=== PATIENT | female | born 1965 | race Two or more races ===

== ENCOUNTER 2018-08-16 16:48 | Inpatient (IN) | payer BC ==
[~2018-08-16] VITALS: Ht 152.4 cm; Wt 53.5 kg
[2018-08-16] MEDS ORDERED: IPRATROPIUM BROM 0.5 MG/2.5ML INH SOL NEB ONE ×2 (17:00→21:00)
[2018-08-16] MEDS ORDERED: ALBUTEROL SULF 2.5 MG/0.5ML(0.5%) NEB SOLN NEB ONE ×2 (17:00→21:00)
[2018-08-16] MEDS ORDERED: methylPREDNISolone SOD SUCC 125 MG/2 ML VL IV ONE ×2 (17:15→21:15)
[2018-08-16] MEDS ORDERED: AZITHROMYCIN 500MG/ 250ML 250 ML IV ONE (17:15)
[2018-08-16 17:21] LABS: Basophils # (auto) 0.1 uL; Basophils % (auto) 0.4 % (0.0-2.0); Eosinophils # (auto) 0 uL; Eosinophils % (auto) 0.2 % (0.0-7.0); Hematocrit 41.3 % (36.0-46.0); Hemoglobin 13.8 g/dL (12.2-16.2); Lymphocytes # (auto) 3.9 uL; Mean Corpuscular Hgb Conc. 33.5 g/dL (32.0-36.0); Mean Corpuscular Volume 89.5 fL (80.0-100.0); Monocytes % (auto) 6.8 % (0.0-12.0); Neutrophils % (auto) 66.6 % (37.0-80.0); Platelet Count (auto) 320 10^3/uL (140-450); Red Blood Cells 4.61 10^6/uL (4.0-5.20); Red Cell Distribution Width 13.4 % (11.8-14.3); White Blood Cell 15.1 10^3/uL (4.4-10.8)
[2018-08-16 17:37] LABS: Alanine Aminotransferase 55 U/L (13-56); Albumin 3.4 g/dL (3.4-5.0); Anion Gap 10 (5-15); Aspartate Aminotransferase 19 U/L (15-37); BUN/Creatinine Ratio 30.1; Blood Urea Nitrogen 22 mg/dL (7-18); Calcium 8.9 mg/dL (8.5-10.1); Carbon Dioxide 29 mmol/L (21-32); Chloride 103 mmol/L (98-107); GFR African American 107 mL/min; GFR Non-African American 89 mL/min; Glucose 119 mg/dL (74-106); Magnesium 2.5 mg/dL (1.6-2.6); Potassium 3.9 mmol/L (3.5-5.1); Sodium 142 mmol/L (136-145)
[2018-08-16 17:42] LABS: Alkaline Phosphatase 273 U/L (45-117); Bilirubin, Total 0.2 mg/dL (0.2-1.0); Total Protein 8.1 g/dL (6.4-8.2)
[2018-08-16] MEDS ORDERED: cefTRIAXone 1GM/50ML D5W 50 ML IV ONE (18:15)
[2018-08-16] MEDS ORDERED: ALBUTEROL SULF 2.5 MG/0.5ML(0.5%) NEB SOLN HHN ONE (21:00)
[2018-08-16 21:14] VITALS: BP 161/92
[2018-08-16] MEDS ORDERED: ONDANSETRON HCL 4 MG/2 ML VIAL IV PRN (21:15)
[2018-08-16] MEDS ORDERED: ACETAMINOPHEN 325 MG TAB PO PRN (21:15)
[2018-08-16] MEDS ORDERED: NITROGLYCERIN 0.4 MG SL TAB SL PRN (21:15)
[2018-08-16] MEDS ORDERED: IPRATROPIUM BROM 0.5 MG/2.5ML INH SOL NEB PRN (21:15)
[2018-08-16] MEDS ORDERED: ALBUTEROL SULF 2.5 MG/0.5ML(0.5%) NEB SOLN NEB PRN (21:15)
[2018-08-16] MEDS ORDERED: MORPHINE SULF INJ 2 MG/ML SYRINGE 1ML IV PRN (21:15)
[2018-08-16] MEDS ORDERED: HYDROcodone-ACET 5/325MG TAB PO PRN (21:15)
[2018-08-16] MEDS: FAMOTIDINE 20 MG TAB PO SCH (21:42)
[2018-08-16] MEDS: guaiFENesin-DM 100/10mg/5ml SYR PO PRN (21:47)
[2018-08-16 22:07] VITALS: BP 141/76
[2018-08-16 22:30] VITALS: BP 125/68
--- NOTE | 2018-08-16 22:30 | NUR ---
Telemetry admit from ER MARINA VEGA admitted to Telemetry unit after SBAR received. Patient oriented to ANGELA MARSHALL OCA, primary RN, unit, room, bed, and unit policies regarding patient care and visiting hours. Patient now on continuous telemetry monitoring, tele box #41 and telemetry reading on arrival to unit is sinus tach 101. Patient placed Bipap by RT, weighed by bedscale and encouraged to call if they need something. All questions and concerns addressed, patient verbalized understanding. Family currently at bedside. Bed in lowest locked position, call light within reach, side rails up x2, fall precautions in place. Will continue to monitor Q1hr and PRN.
[2018-08-16] MEDS: TEMAZEPAM 15 MG CAP PO PRN (23:52)
[2018-08-17] VITALS (7 sets, daily range): BP systolic 125–143; BP diastolic 68–86
[2018-08-17] MEDS: guaiFENesin-DM 100/10mg/5ml SYR PO PRN ×3 (05:25→20:12)
--- NOTE | 2018-08-17 05:32 | NUR ---
Rapid influenza sent to lab.
--- NOTE | 2018-08-17 06:01 | NUR ---
Respiratory note: RECEIVED PT ON RESPIRONICS V60 BIPAP ([id number]), BIPAP CONNECTED TO RED OUTLET AND O2 SOURCE. ALARMS ARE SET AND AUDIBLE. AMBU BAG AND MASK AT BEDSIDE. BS ARE FINE COURSE T/O. PT ON A SIZE (M) MASK. NO BREAKDOWN NOTED. ADJUSTED MASK TO ACHIEVE ACCEPTABLE LEAK LIQUICELL IN PLACE ON BRIDGE OF NOSE. FIO2 INCREASED TO 40% DUE TO DESATURATION, RN ANGELA AT BEDSIDE AND AWARE OF CHANGE. RT NAME AND PAGER ASSIGNMENT WRITTEN ON PTS ROOM BOARD.
[2018-08-17 06:21] LABS: Basophils # (auto) 0 uL; Basophils % (auto) 0.1 % (0.0-2.0); Eosinophils # (auto) 0 uL; Hematocrit 41.3 % (36.0-46.0); Hemoglobin 13.9 g/dL (12.2-16.2); Lymphocytes # (auto) 0.8 uL; Lymphocytes % (auto) 8.1 % (10.0-50.0); Mean Corpuscular Hemoglobin 30.3 pg (28.0-32.0); Mean Corpuscular Hgb Conc. 33.6 g/dL (32.0-36.0); Mean Corpuscular Volume 90.1 fL (80.0-100.0); Monocytes # (auto) 0.1 uL; Monocytes % (auto) 1.5 % (0.0-12.0); Neutrophils # (auto) 8.6 uL; Neutrophils % (auto) 90.3 % (37.0-80.0); Nucleated Red Blood Cells % 0.1 %; Platelet Count (auto) 308 10^3/uL (140-450); Red Blood Cells 4.58 10^6/uL (4.0-5.20); Red Cell Distribution Width 13.5 % (11.8-14.3); White Blood Cell 9.5 10^3/uL (4.4-10.8)
[2018-08-17 06:34] LABS: Potassium 3.9 mmol/L (3.5-5.1)
[2018-08-17 06:44] LABS: Albumin 3.2 g/dL (3.4-5.0); BUN/Creatinine Ratio 28.3; Bilirubin, Total 0.3 mg/dL (0.2-1.0); Calcium 8.9 mg/dL (8.5-10.1); Total Protein 7.9 g/dL (6.4-8.2)
--- NOTE | 2018-08-17 08:00 | NUR ---
Respiratory note: PT OFF BIPAP TO GO TO RESTROOM. PLACED PT ON 12LPM OXYMIZER. POX 99-100% WILL TITRATE TOLERATED RN DONNA AT BEDSIDE, AWARE AND ASSISTING PT TO COMMODE. WILL CONTINUE TO MONITOR.
[2018-08-17] MEDS: cefTRIAXone 1GM/50ML D5W 50 ML IV SCH (09:32)
[2018-08-17] MEDS ORDERED: BUDESONIDE (INHALATION) 0.5 MG/2 ML NEB NEB ONE (09:45)
--- NOTE | 2018-08-17 09:55 | NUR ---
Respiratory note: FIO2 TITRATED TO 10LPM VIA OXYMIZER. RN DONNA AWARE OF CHANGE.
[2018-08-17] MEDS: methylPREDNISolone SOD SUCC 125 MG/2 ML VL IV SCH ×2 (10:45→22:42)
[2018-08-17] MEDS: AZITHROMYCIN 500MG/ 250ML 250 ML IV SCH (10:45)
[2018-08-17] MEDS: FAMOTIDINE 20 MG TAB PO SCH ×2 (10:46→22:42)
--- NOTE | 2018-08-17 12:36 | NUR ---
SHORTNESS OF BREATH PAGED RT FOR BREATHING TREATMENT, PT IS COMPLAINING SHE IS HAVING SHORTNESS OF BREATH.
[2018-08-17] MEDS: ALBUTEROL SULF 2.5 MG/0.5ML(0.5%) NEB SOLN NEB SCH ×3 (12:58→18:27)
[2018-08-17] MEDS: IPRATROPIUM BROM 0.5 MG/2.5ML INH SOL NEB SCH ×3 (12:58→18:27)
[2018-08-17] MEDS: BUDESONIDE (INHALATION) 0.5 MG/2 ML NEB NEB SCH ×2 (13:00→18:27)
[2018-08-17 15:05] LABS: Urine Amorphous Crystal FEW /hpf (None Seen); Urine Bacteria NONE SEEN /hpf (None Seen); Urine Blood Negative /uL (Negative); Urine Specific Gravity 1.014 (1.001-1.035); Urine WBC 4 /hpf (0 - 5)
--- NOTE | 2018-08-17 15:52 | NUR ---
PT IS COMPLAINING OF DIFFICULTY BREATHING, PAGED RT FOR BREATHING TREATMENT.
--- NOTE | 2018-08-17 18:14 | NUR ---
paged RT, pt complaining of difficulty breathing and requesting breathing treatment before eating her dinner. O2 sat is 96%, will continue to monitor.
--- NOTE | 2018-08-17 20:17 | NUR ---
Paging hospitalist because patient is having SOB with increased HR. Patient reports SOB on 10l/min Oxymizer. RR: 32, O2 sat: 98% on 10 l/min, HR: 135. Wheezing auscultated in bilateral lungs, worse in upper lobes. RT paged and assessed. RT placed patient on BiPAP. Patient is very anxious and does not like the claustrophobic feeling of the BiPAP. Pt states she takes Xopenex at home and it helps her. Albuterol and Atrovent potentially harmful with high HR. RT recommends Xopenex 0.63 mg NEB q 4 hrs scheduled, DC Atrovent and Ventolin scheduled order, and change Atrovent/Ventolin PRN orders to q 2 hrs instead of 4 hrs PRN. I would also like to recommend Ativan PO for anxiety. Addendum: 08/17/18 at 2159 by YANETH CH RN Patient is currently receiving Solumedrol 80 mg IV BID as well.
--- NOTE | 2018-08-17 21:58 | NUR ---
Paging hospitalist again.
[2018-08-17] MEDS ORDERED: LORazepam 2MG/ML-1ML VIAL IV PRN (22:15)
[2018-08-17] MEDS ORDERED: ALBUTEROL SULF 2.5 MG/0.5ML(0.5%) NEB SOLN NEB PRN (22:15)
--- NOTE | 2018-08-17 22:18 | NUR ---
Spoke to PABLO Ochoa and notified her of the patient's condition. PABLO Ochoa ordered the followin) Ativan 1 mg IV q 6 hrs PRN anxiety, 2) Levalbuterol 0.63 mg NEB q 6 hrs scheduled, 3) DC scheduled Atrovent and Albuterol, 4) change PRN Albuterol and Ventolin from q 4 hrs PRN to q 2 hrs PRN. PABLO Ochoa requested Solumedrol order to remain unchanged. Orders repeated, verified, and placed.
[2018-08-17] MEDS ORDERED: LEVALBUTEROL HCL 1.25 MG/3 ML NEB ONE (22:28)
[2018-08-17] MEDS ORDERED: LORazepam 2MG/ML-1ML VIAL ONE (22:37)
[2018-08-18] MEDS ORDERED: LEVA1NEB5 NEB (03:52)
[2018-08-18 05:00] VITALS: BP 139/89
[2018-08-18] MEDS: guaiFENesin-DM 100/10mg/5ml SYR PO PRN ×2 (05:03→19:17)
[2018-08-18] MEDS ORDERED: LEVALBUTEROL HCL 1.25 MG/3 ML NEB ONE ×4 (05:47→23:38)
[2018-08-18] MEDS ORDERED: LEVALBUTEROL HYDROCHLORIDE 0.63 MG/3 ML NEB SOLN NEB SCH (06:00)
[2018-08-18] MEDS: BUDESONIDE (INHALATION) 0.5 MG/2 ML NEB NEB SCH ×2 (06:02→19:17)
[2018-08-18 06:04] LABS: Basophils # (auto) 0 uL; Basophils % (auto) 0.1 % (0.0-2.0); Eosinophils # (auto) 0 uL; Hematocrit 43.1 % (36.0-46.0); Hemoglobin 14.1 g/dL (12.2-16.2); Lymphocytes # (auto) 0.7 uL; Lymphocytes % (auto) 4.3 % (10.0-50.0); Mean Corpuscular Hemoglobin 29.5 pg (28.0-32.0); Mean Corpuscular Hgb Conc. 32.8 g/dL (32.0-36.0); Monocytes # (auto) 0.5 uL; Monocytes % (auto) 2.9 % (0.0-12.0); Neutrophils # (auto) 16.1 uL; Neutrophils % (auto) 92.7 % (37.0-80.0); Platelet Count (auto) 383 10^3/uL (140-450); Red Blood Cells 4.79 10^6/uL (4.0-5.20); Red Cell Distribution Width 13.8 % (11.8-14.3); White Blood Cell 17.4 10^3/uL (4.4-10.8)
[2018-08-18 06:39] LABS: Potassium 4.2 mmol/L (3.5-5.1)
[2018-08-18 06:47] LABS: BUN/Creatinine Ratio 35.1; Calcium 9.3 mg/dL (8.5-10.1); Magnesium 2.8 mg/dL (1.6-2.6)
[2018-08-18] MEDS ORDERED: ASCO500T11 PO (07:14)
[2018-08-18] MEDS ORDERED: OMEG100062 PO (07:14)
[2018-08-18] MEDS ORDERED: CETI1TAB36 PO (07:14)
[2018-08-18] MEDS ORDERED: FLUT0.05 NAS (07:14)
[2018-08-18] MEDS: cefTRIAXone 1GM/50ML D5W 50 ML IV SCH (08:27)
[2018-08-18 08:41] VITALS: BP 127/73
[2018-08-18] MEDS: IPRATROPIUM BROM 0.5 MG/2.5ML INH SOL NEB PRN ×2 (08:59→16:35)
--- NOTE | 2018-08-18 09:00 | NUR ---
RT NOTE: PAGED TO BEDSIDE DUE TO PT DESATURATION. UPON ENTERING RN BEDSIDE WITH . PT ON 15L NON-REBREATHER WITH SPO2 94. RN STATED THAT ON 12L OXYMIZER SPO2 WAS ONLY ABOUT 86. PT GIVEN PRN ATROVENT ONLY DUE TO HR BEING ABOVE 120. LUNG SOUNDS PRIOR WERE VERY DIMINISHED, MORE SO ON THE LEFT THAN THE RIGHT. POST TX, RIGHT LUNG SOUNDS WERE CLEAR BUT LEFT LUNG SOUNDS STILL VERY DIMINISHED. SPOKE WITH RN ABOUT TRYING TO HAVE SOLUMEDROL INCREASED TO ASSIST WITH OPENING UP HER AIRWAYS. WILL CONTINUE TO MONITOR.
[2018-08-18] MEDS ORDERED: POTASSIUM CHL 20 Meq TABLET PO ONE (09:30)
[2018-08-18] MEDS ORDERED: FUROSEMIDE 20 MG/2 ML VIAL IV ONE (09:30)
[2018-08-18] MEDS: FAMOTIDINE 20 MG TAB PO SCH ×2 (09:32→21:20)
[2018-08-18] MEDS: methylPREDNISolone SOD SUCC 125 MG/2 ML VL IV SCH ×3 (09:32→21:20)
[2018-08-18] MEDS: AZITHROMYCIN 500MG/ 250ML 250 ML IV SCH (09:33)
--- NOTE | 2018-08-18 10:40 | NUR ---
Brice catheter insertion Patient assessed and determined to be in need of brice catheter. Order obtained from MD. Patient educated on catheter and reason for insertion. All questions answered. Brice catheter guage Turkmen inserted with clean sterile technique. Patient tolerated well.
--- NOTE | 2018-08-18 11:05 | NUR ---
Pulmonary consult Pt seen by DR. Mims, he ordered BNP.
[2018-08-18] MEDS: ACETYLCYSTEINE 10 %(100MG/ML) SOL 4ML NEB SCH ×2 (11:46→19:15)
[2018-08-18] MEDS: LEVALBUTEROL HYDROCHLORIDE 0.63 MG/3 ML NEB SOLN NEB SCH ×2 (11:46→19:15)
[2018-08-18 12:13] VITALS: BP 124/77
--- NOTE | 2018-08-18 14:00 | NUR ---
care endorsed to DI Duran
--- NOTE | 2018-08-18 15:30 | NUR ---
Opening Shift Note: A&Ox4, resting in bed. Primary language is syrian but speaks chinese. Currently on 7LO2 via oxymizer; does not wear O2 at home; pain level 0/10; and at baseline, ambulates independently without assistive devices; currently bedrest per physician order. IV 20 g in left AC IID inserted on 08/16/18. Skin intact. [place] inserted on 08/18/18 for prolonged immobilization. POC discussed and questions answered. Will continue to round prn.
[2018-08-18 16:57] VITALS: BP 115/72
--- NOTE | 2018-08-18 18:16 | NUR ---
Respiratory note: AT BEDSIDE FOR MED NEB TX. PT EATING AT THIS TIME. PTS FAMILY AT BEDSIDE. WILL RETURN TO ADMINISTER TX WHEN PT IS DONE EATING.
--- NOTE | 2018-08-18 19:05 | NUR ---
RT paged for breathing treatment.
--- NOTE | 2018-08-18 19:15 | NUR ---
Respiratory note: AT BEDSIDE FOR MED NEB TX. PT TOLERATING TX WELL VIA MASK. RT NAME AND PAGER ASSIGNMENT WRITTEN ON PTS ROOM BOARD. WILL CONTINUE TO MONITOR.
[2018-08-18] MEDS: TEMAZEPAM 15 MG CAP PO PRN (21:20)
[2018-08-18 22:00] VITALS: BP 147/85
--- NOTE | 2018-08-18 22:20 | NUR ---
Brice catheter leaking: Per patient, when she coughs, she is incontinent of urine around the brice catheter. 3 ml of NS added to 10 ml balloon. Will reassess for leaking
[2018-08-19] MEDS: LEVALBUTEROL HYDROCHLORIDE 0.63 MG/3 ML NEB SOLN NEB SCH ×4 (00:03→18:00)
--- NOTE | 2018-08-19 00:03 | NUR ---
Brice catheter still leaking: Brice 14 F removed related to leaking. Attempted 16F but was unsuccessful on insertion. Patient refusing brice catheter at this time and states she will use the bedpan.
--- NOTE | 2018-08-19 00:06 | NUR ---
Respiratory note: AT BEDSIDE FOR MED MARIO TELLEZ.
[2018-08-19] MEDS: ACETYLCYSTEINE 10 %(100MG/ML) SOL 4ML NEB SCH ×4 (00:07→18:22)
--- NOTE | 2018-08-19 00:14 | NUR ---
Respiratory note: FIO2 TITRATED FROM 7 TO 5LPM VIA OXYMIZER. DI López MADE AWARE.
[2018-08-19] MEDS: guaiFENesin-DM 100/10mg/5ml SYR PO PRN ×5 (03:36→21:31)
[2018-08-19 05:00] VITALS: BP 117/72
[2018-08-19 05:03] LABS: Basophils # (auto) 0.2 uL; Eosinophils # (auto) 0 uL; Hematocrit 41.2 % (36.0-46.0); Hemoglobin 13.9 g/dL (12.2-16.2); Lymphocytes # (auto) 0.7 uL; Lymphocytes % (auto) 4.2 % (10.0-50.0); Mean Corpuscular Hemoglobin 30.2 pg (28.0-32.0); Mean Corpuscular Hgb Conc. 33.7 g/dL (32.0-36.0); Mean Corpuscular Volume 89.5 fL (80.0-100.0); Monocytes # (auto) 0.6 uL; Monocytes % (auto) 3.6 % (0.0-12.0); Neutrophils # (auto) 14.9 uL; Neutrophils % (auto) 91.2 % (37.0-80.0); Platelet Count (auto) 386 10^3/uL (140-450); Red Blood Cells 4.61 10^6/uL (4.0-5.20); Red Cell Distribution Width 13.7 % (11.8-14.3); White Blood Cell 16.3 10^3/uL (4.4-10.8)
[2018-08-19 05:08] LABS: BUN/Creatinine Ratio 39.4; Calcium 9.3 mg/dL (8.5-10.1)
[2018-08-19] MEDS: methylPREDNISolone SOD SUCC 125 MG/2 ML VL IV SCH ×3 (06:33→21:31)
[2018-08-19] MEDS ORDERED: LEVALBUTEROL HCL 1.25 MG/3 ML NEB ONE ×4 (06:57→23:45)
[2018-08-19] MEDS: BUDESONIDE (INHALATION) 0.5 MG/2 ML NEB NEB SCH ×2 (07:01→18:21)
[2018-08-19 08:27] VITALS: BP 118/67
[2018-08-19] MEDS: cefTRIAXone 1GM/50ML D5W 50 ML IV SCH (09:51)
[2018-08-19] MEDS: FAMOTIDINE 20 MG TAB PO SCH ×2 (09:51→21:31)
[2018-08-19] MEDS: AZITHROMYCIN 500MG/ 250ML 250 ML IV SCH (10:30)
[2018-08-19 12:46] VITALS: BP 115/68
--- NOTE | 2018-08-19 14:47 | NUR ---
PATIENT GIVEN INCENTIVE SPIROMETER PER ORDERS EDUCATION PROVIDED TO PATIENT AND FAMILY, PATIENT AND FAMILY VERBALIZED UNDERSTANDING. RETURN DEMONSTRATION PROVIDED. ALL QUESTIONS AND CONCERNS ADDRESS. WILL CONTINUE CARE.
[2018-08-19 16:22] VITALS: BP 115/73
--- NOTE | 2018-08-19 19:35 | NUR ---
open note assumed care of pt. upon entering room pt awake and alert. pt has family at bedside. pt on 5L NC with no distress noted or expressed. pt bed locked low and 2x rails up. pt denies any pain. pt updated on plan of care. no questions at this time. call light in reach. will round q1hr and prn.
[2018-08-19 21:30] VITALS: BP 112/65
[2018-08-19] MEDS: TEMAZEPAM 15 MG CAP PO PRN (21:31)
--- NOTE | 2018-08-19 22:00 | NUR ---
pt back to room without incident. no distress noted. call light in reach, will continue to monitor. Addendum: 08/19/18 at 2205 by MARIA ZAVALA RN RN disregard note, wrong patient.
[2018-08-19 22:50] VITALS: BP 115/73
[2018-08-20] MEDS: ACETYLCYSTEINE 10 %(100MG/ML) SOL 4ML NEB SCH ×5 (00:40→23:45)
[2018-08-20 05:00] VITALS: BP 106/56
[2018-08-20 05:42] LABS: Basophils # (auto) 0 uL; Basophils % (auto) 0.1 % (0.0-2.0); Eosinophils # (auto) 0 uL; Hematocrit 41.9 % (36.0-46.0); Hemoglobin 13.9 g/dL (12.2-16.2); Lymphocytes # (auto) 0.9 uL; Lymphocytes % (auto) 5.5 % (10.0-50.0); Mean Corpuscular Hgb Conc. 33.3 g/dL (32.0-36.0); Monocytes # (auto) 0.6 uL; Monocytes % (auto) 3.6 % (0.0-12.0); Neutrophils # (auto) 14.1 uL; Neutrophils % (auto) 90.8 % (37.0-80.0); Nucleated Red Blood Cells % 0.1 %; Platelet Count (auto) 409 10^3/uL (140-450); Red Blood Cells 4.65 10^6/uL (4.0-5.20); Red Cell Distribution Width 13.6 % (11.8-14.3); White Blood Cell 15.5 10^3/uL (4.4-10.8)
[2018-08-20 05:56] LABS: BUN/Creatinine Ratio 53.3; Calcium 8.9 mg/dL (8.5-10.1); Potassium 4.3 mmol/L (3.5-5.1)
[2018-08-20] MEDS: guaiFENesin-DM 100/10mg/5ml SYR PO PRN ×2 (06:34→21:49)
[2018-08-20] MEDS: methylPREDNISolone SOD SUCC 125 MG/2 ML VL IV SCH ×3 (06:34→21:49)
[2018-08-20] MEDS: BUDESONIDE (INHALATION) 0.5 MG/2 ML NEB NEB SCH ×2 (06:39→18:54)
[2018-08-20] MEDS: LEVALBUTEROL HYDROCHLORIDE 0.63 MG/3 ML NEB SOLN NEB SCH ×5 (06:39→23:45)
--- NOTE | 2018-08-20 07:10 | NUR ---
Opening Shift Note RECEIVED REPORT FROM NOC RN. Assumed care of patient, awake and alert. PATIENT ON OXYGEN AT 5 LPM VIA NASAL CANNULA WITH no S/S of distress/SOB or pain. BED IN LOWEST, LOCKED POSITION WITH SIDERAILS UP x2. Instructed on POC and to call for assist PRN, will continue to monitor for changes Q1hr and PRN.
[2018-08-20] MEDS ORDERED: LEVALBUTEROL HCL 1.25 MG/3 ML NEB ONE ×4 (07:44→23:34)
[2018-08-20 08:30] VITALS: BP 123/72
[2018-08-20] MEDS: cefTRIAXone 1GM/50ML D5W 50 ML IV SCH (09:30)
[2018-08-20] MEDS: FAMOTIDINE 20 MG TAB PO SCH ×2 (10:07→21:49)
[2018-08-20] MEDS: AZITHROMYCIN 500MG/ 250ML 250 ML IV SCH (10:07)
[2018-08-20 13:30] VITALS: BP 114/74
--- NOTE | 2018-08-20 15:53 | NUR ---
DR. DIAZ AT BEDSIDE. DR. DIAZ SPEAKING WITH PATIENT. UPDATED PATIENT ON POC. NO NEW ORDERS.
--- NOTE | 2018-08-20 16:50 | NUR ---
DR. MORRISSEY AT BEDSIDE. DR. MORRISSEY SPEAKING WITH PATIENT AND . UPDATED ON POC. NEW ORDERS RECEIVED.
--- NOTE | 2018-08-20 17:15 | NUR ---
PATIENT AMBULATED IN THE HALLWAY FROM CENTRAL UNIT, DOWN TO THE END OF WEST UNIT, AND BACK WITHOUT ANY DYSPNEA OR SHORTNESS OF BREATH.
--- NOTE | 2018-08-20 17:22 | NUR ---
RADIOLOGY AT BEDSIDE. RADIOLOGY TAKING PATIENT FOR CT SCAN.
[2018-08-20 17:30] VITALS: BP 114/71
--- NOTE | 2018-08-20 19:40 | NUR ---
open note assumed care of pt. upon entering room pt awake and alert, accompanied by . bed locked, low and 2x rails up. pt updated on plan of care. pt on 3L NC without any distress noted. no additional questions at this time. call light in reach, will round q1hr and prn.
[2018-08-20 21:30] VITALS: BP 119/73
[2018-08-20] MEDS: TEMAZEPAM 15 MG CAP PO PRN (21:49)
[2018-08-20] MEDS: IPRATROPIUM BROM 0.5 MG/2.5ML INH SOL NEB PRN (23:45)
[2018-08-21 05:00] VITALS: BP 113/68
[2018-08-21] MEDS ORDERED: LEVALBUTEROL HCL 1.25 MG/3 ML NEB ONE ×4 (05:34→23:39)
[2018-08-21] MEDS: LEVALBUTEROL HYDROCHLORIDE 0.63 MG/3 ML NEB SOLN NEB SCH ×4 (05:47→23:58)
[2018-08-21] MEDS: BUDESONIDE (INHALATION) 0.5 MG/2 ML NEB NEB SCH ×2 (05:47→18:05)
[2018-08-21] MEDS: ACETYLCYSTEINE 10 %(100MG/ML) SOL 4ML NEB SCH ×4 (05:47→23:58)
[2018-08-21 06:12] LABS: Basophils # (auto) 0 uL; Basophils % (auto) 0.1 % (0.0-2.0); Eosinophils # (auto) 0 uL; Hemoglobin 13.7 g/dL (12.2-16.2); Lymphocytes # (auto) 0.8 uL; Lymphocytes % (auto) 6.1 % (10.0-50.0); Mean Corpuscular Hemoglobin 30.2 pg (28.0-32.0); Mean Corpuscular Hgb Conc. 33.5 g/dL (32.0-36.0); Mean Corpuscular Volume 90.2 fL (80.0-100.0); Monocytes # (auto) 0.4 uL; Monocytes % (auto) 3.1 % (0.0-12.0); Neutrophils # (auto) 11.7 uL; Neutrophils % (auto) 90.7 % (37.0-80.0); Nucleated Red Blood Cells % 0.1 %; Platelet Count (auto) 396 10^3/uL (140-450); Red Blood Cells 4.54 10^6/uL (4.0-5.20); Red Cell Distribution Width 13.5 % (11.8-14.3); White Blood Cell 12.9 10^3/uL (4.4-10.8)
[2018-08-21] MEDS: methylPREDNISolone SOD SUCC 125 MG/2 ML VL IV SCH (06:30)
[2018-08-21 06:54] LABS: BUN/Creatinine Ratio 37.5; Calcium 8.8 mg/dL (8.5-10.1); Potassium 4.3 mmol/L (3.5-5.1)
--- NOTE | 2018-08-21 07:20 | NUR ---
Morning note patient resting in bed with even and unlabored respirations, no distress noted. Instructed patient on POC, fall precautions and to call for assistance as needed. patient verbalized understanding. Fall precautions in place with call light within reach. Will continue to monitor q1hr & PRN.
[2018-08-21 09:00] VITALS: BP 106/69
[2018-08-21] MEDS: FAMOTIDINE 20 MG TAB PO SCH ×2 (09:50→21:43)
[2018-08-21] MEDS: cefTRIAXone 1GM/50ML D5W 50 ML IV SCH (09:50)
--- NOTE | 2018-08-21 09:55 | NUR ---
was at bedside - Dr. Liv LORA discussed with the patient and patient's spouse at bedside. This RN present.
[2018-08-21] MEDS: AZITHROMYCIN 250 MG TAB PO SCH (10:41)
--- NOTE | 2018-08-21 10:51 | NUR ---
Patient ambulating with steady gait, no distress noted. Patient's spouse is at her side.
--- NOTE | 2018-08-21 11:01 | NUR ---
Pulse ox 87-89% on RA after ambulation HR ST 135 bpm. Patient returned to bed with no complications. Patient placed on supplemental oxygen per MD's order. Notified Dr. Peck. verbalized understanding. Ordered to continue to monitor.
--- NOTE | 2018-08-21 11:50 | NUR ---
Telemonitor removed & returned to telemonitor tech per MD's order
--- NOTE | 2018-08-21 12:19 | NUR ---
Nutrition Assessment Notes please see attached link for complete assessment Est. Needs BW [id number] kcal (25-30 kcal/kgBW), 51-61 gms pro (1.0-1.2 gms/kgBW). Will continue to monitor pertinent labs and reassess nutrient need prn Addendum: 08/21/18 at [address] Amended: Links added.
[2018-08-21 13:00] VITALS: BP 104/66
[2018-08-21] MEDS: methylPREDNISolone SOD SUCC 40 MG/ML VL IV SCH ×2 (14:08→21:43)
--- NOTE | 2018-08-21 14:10 | NUR ---
Patient sitting in chair at bedside respirations even and unlabored, no distress noted. Call light within reach. Patient's spouse is at bedside.
--- NOTE | 2018-08-21 16:50 | NUR ---
Patient ambulating steady gait noted. Respirations even and unlabored, no distress noted. Patient's spouse at patient's side.
[2018-08-21 17:00] VITALS: BP 112/76
--- NOTE | 2018-08-21 18:05 | NUR ---
was at bedside - Dr. Mims Patient clear for discharge per MD.
--- NOTE | 2018-08-21 18:43 | NUR ---
Closing note patient resting in bed with even and unlabored respirations, no distress noted. Fall precautions in place with call light within reach.
--- NOTE | 2018-08-21 19:30 | NUR ---
Care endorsed to DI Mcadams.
--- NOTE | 2018-08-21 19:35 | NUR ---
assumed care, pt. awake, no c/o pain, no sob.
[2018-08-21 22:41] VITALS: BP 98/53
[2018-08-22 05:17] LABS: Basophils # (auto) 0 uL; Basophils % (auto) 0.1 % (0.0-2.0); Eosinophils # (auto) 0 uL; Hemoglobin 13.3 g/dL (12.2-16.2); Lymphocytes # (auto) 0.7 uL; Lymphocytes % (auto) 5.8 % (10.0-50.0); Mean Corpuscular Hemoglobin 29.7 pg (28.0-32.0); Mean Corpuscular Hgb Conc. 33.3 g/dL (32.0-36.0); Mean Corpuscular Volume 89.1 fL (80.0-100.0); Monocytes # (auto) 0.4 uL; Monocytes % (auto) 3.2 % (0.0-12.0); Neutrophils # (auto) 10.9 uL; Neutrophils % (auto) 90.9 % (37.0-80.0); Platelet Count (auto) 375 10^3/uL (140-450); Red Blood Cells 4.49 10^6/uL (4.0-5.20); Red Cell Distribution Width 13.4 % (11.8-14.3)
[2018-08-22 05:25] VITALS: BP 106/65
[2018-08-22] MEDS: methylPREDNISolone SOD SUCC 40 MG/ML VL IV SCH (05:27)
[2018-08-22] MEDS ORDERED: LEVALBUTEROL HCL 1.25 MG/3 ML NEB ONE ×2 (05:35→11:10)
[2018-08-22] MEDS ORDERED: BUDESONIDE (INHALATION) 0.5 MG/2 ML NEB ONE (05:35)
[2018-08-22] MEDS: BUDESONIDE (INHALATION) 0.5 MG/2 ML NEB NEB SCH (05:46)
[2018-08-22] MEDS: ACETYLCYSTEINE 10 %(100MG/ML) SOL 4ML NEB SCH ×2 (05:47→11:52)
[2018-08-22] MEDS: IPRATROPIUM BROM 0.5 MG/2.5ML INH SOL NEB PRN ×2 (05:47→11:53)
[2018-08-22] MEDS: LEVALBUTEROL HYDROCHLORIDE 0.63 MG/3 ML NEB SOLN NEB SCH ×2 (05:53→11:56)
--- NOTE | 2018-08-22 07:15 | NUR ---
Report and continuation of care received ,patient resting in bed, at bedside,awake alert oriented .respirations even and unlabored, no distress noted. o2 at 2liters nasal cannula in used.Patient updated with plan of care and nursing routines ,Fall precautions in place with call light within reach. patient reminded instructed to call for assistance.patient verbalized understanding.Will continue to monitor q1hr & PRN.
[2018-08-22 09:00] VITALS: BP 92/66
[2018-08-22] MEDS: cefTRIAXone 1GM/50ML D5W 50 ML IV SCH (09:50)
--- NOTE | 2018-08-22 09:50 | NUR ---
MD VISIT DR. DOMÍNGUEZ HERE TO SEE AND EXAMINED PATIENT,RECEIVED ORDER TO CHECK ROOM AIR SATURATION,OXYGEN OFF AT THIS TIME.
[2018-08-22] MEDS: AZITHROMYCIN 250 MG TAB PO SCH (09:51)
[2018-08-22] MEDS: FAMOTIDINE 20 MG TAB PO SCH (09:51)
--- NOTE | 2018-08-22 10:00 | NUR ---
ROOM AIR SATURATION 90-91% DR. DOMÍNGUEZ INFORMED
--- NOTE | 2018-08-22 10:05 | NUR ---
PATIENT AMBULATED IN HALLWAY WITH
--- NOTE | 2018-08-22 10:10 | NUR ---
ROOM AIR SATURATION POST AMBULATION 91%.DR. DOMÍNGUEZ MADE AWARE,RECEIVED ORDER FOR DISCHARGE.
[2018-08-22 11:29] VITALS: BP 92/66
--- NOTE | 2018-08-22 12:45 | NUR ---
Discharge instructions given as ordered. Encourage to follow up with PMD as instructed. All questions and concerns addressed. Patient verbalized understanding. Medication reconciliation form completed and copy given to patient. IV removed with catheter intact, pressure dressing applied. Patient taken to vehicle AMBULATORY PER PATIENT REQUEST with all personal belongings, accompanied by family member. No distress noted at time of departure.
== END 2018-08-22 12:45 | disposition home or self-care (01) | DRG 871 ==
LOC: ER 16:48 → TELE 21:20 → TELE-CENTR 22:32 → CENTRAL 08-21 15:04
PROVIDERS: ADMIT Nurse Practitioner; ATTEND Internal Medicine
PROC: 5A09357 Assistance with Respiratory Ventilation, Less than 24 Consecutive Hours, Continuous Positive Airway Pressure (ICD-10-PCS; principal; 2018-08-16)
PROC: 5A09357 Assistance with Respiratory Ventilation, Less than 24 Consecutive Hours, Continuous Positive Airway Pressure (ICD-10-PCS; 2018-08-17)
DX: A41.9 Sepsis, unspecified organism (principal); I50.41 Acute combined systolic (congestive) and diastolic (congestive) heart failure; J96.00 Acute respiratory failure, unspecified whether with hypoxia or hypercapnia; J18.9 Pneumonia, unspecified organism; J45.901 Unspecified asthma with (acute) exacerbation; J44.1 Chronic obstructive pulmonary disease with (acute) exacerbation; J44.0 Chronic obstructive pulmonary disease with (acute) lower respiratory infection; J91.8 Pleural effusion in other conditions classified elsewhere; R73.9 Hyperglycemia, unspecified; Z88.2 Allergy status to sulfonamides
CPT/HCPCS: 36415; 36600; 71045; 71250; 80048; 80053; 81001; 81002; 82805; 83036; 83605; 83735; 83880; 84443; 84484; 85025; 85379; 87040; 87070; 87205; 87804; 93005; 93306; 94640; 94660; 94761; 94762; 96365; 96366; 96368; 96375; 96376; G0378; J0696